=== PATIENT | male | born 1965 | race Caucasian/White ===

== ENCOUNTER 2017-12-13 12:03 | Emergency (ER) | payer SELFPAY ==
[2017-12-13 13:02] LABS: Bicarbonate 24 mEq/L (21-31); Glucose Level 119 mg/dL (65-120); Potassium 3.2 mEq/L (3.6-5.0); Sodium Level 141 mEq/L (135-145)
[2017-12-13 13:04] LABS: BUN Blood Urea Nitrogen 45 mg/dL (6-20)
[2017-12-13] MEDS ORDERED: NA CHLORIDE 0.9% 1,000 ML ONE (13:17)
[2017-12-13] MEDS ORDERED: POTASSIUM CL SA 10 MEQ TAB PO ONE (13:17)
[2017-12-13 13:37] LABS: Absolute Lymphocytes (CBC) 2.4 K/uL (0.7-4.9); Absolute Monocytes 1.1 K/uL (0.1-1.3); Absolute Neutrophil 8.9 K/uL (1.8-8.0); Basophils % 0.8 % (0-1.3); Eosinophils % 2.3 % (0-4.4); Hematocrit 45.6 % (39.6-49.0); Lymphocytes % 18.7 % (15.3-44.8); MCH 30.9 pg (27.0-35.0); MCV 91.8 fL (80-100); MPV 11.2 fL (7.6-11.3); Monocytes % 8.5 % (3.3-12.3); RBC Red Blood Cell Count 4.96 M/uL (4.33-5.43)
--- NOTE | 2017-12-13 13:37 | ER ---
Nurse's Notes [facility] Name: Eugene Cerna Age: 52 yrs Sex: Male : 1965 Arrival Date: 12/13/2017 Time: 12:06 Bed 3 Private MD: Diagnosis: Dehydration;Toxic effect of ingested mushrooms Presentation: 12/13 12:06 Presenting complaint: EMS states: TONED OUT BY BECAUSE PT WAS ACTING DIFFERENTLY FOR THE PAST FEW DAYS. PT REPORTS TO EMS HE HAS TAKEN MUSHROOMS AND CRATONE FOR THE PAST 3-4 DAYS, BUT HAS NOT TOLD HIS . PT IS USING MUSHROOMS FOR PAIN CONTROL BECAUSE HE CANNOT AFFORD SOMA AND NEURONTIN. Transition of care: patient was not received from another setting of care. Onset of symptoms was December 10, 2017. Risk Assessment: Do you want to hurt yourself or someone else? Patient reports no desire to harm self or others. Initial Sepsis Screen: Does the patient meet any 2 criteria? No. Patient's initial sepsis screen is negative. Does the patient have a suspected source of infection? No. Patient's initial sepsis screen is negative. Care prior to arrival: None. 12:06 Method Of Arrival: EMS: [facility] 12:06 Acuity: SHARI 5 Triage Assessment: 12:10 General: Appears in no apparent distress. comfortable, Behavior is calm, cooperative. Pain: Complains of pain in back. Historical: - Allergies: 12:10 No Known Allergies; - Home Meds: 12:10 WAS TAKING SOMA, NEURONTIN, TYLENOL #3, XANAX-BUT CANNOT AFFORD TO GO SEE A DOCTOR [Active]; - PMHx: 12:10 Chronic pain; Hypertension; Hypothyroidism; - PSHx: 12:10 Appendectomy; - Immunization history:: Adult Immunizations up to date. - Social history:: Smoking status: Patient uses tobacco products, Patient uses street drugs, psilocybin, XANAX. - Ebola Screening: : Patient negative for fever greater than or equal to 101.5 degrees Fahrenheit, and additional compatible Ebola Virus Disease symptoms Patient denies exposure to infectious person Patient denies travel to an Ebola-affected area in the 21 days before illness onset No symptoms or risks identified at this time. - Family history:: not pertinent. - Hospitalizations: : No recent hospitalization is reported. Screenin:48 Abuse screen: Denies threats or abuse. Denies injuries from another. Nutritional ch screening: No deficits noted. Tuberculosis screening: No symptoms or risk factors identified. Fall Risk None identified. Assessment: 13:48 Reassessment: Patient appears in no apparent distress at this time. Patient and/or ch family updated on plan of care and expected duration. Pain level reassessed. Patient is alert, oriented x 3, equal unlabored respirations, skin warm/dry/pink. Patient states feeling better. Patient states symptoms have improved. General: Appears in no apparent distress. comfortable, Behavior is calm, cooperative, appropriate for age. Pain: Denies pain. Neuro: Level of Consciousness is awake, alert, obeys commands, Oriented to person, place, time, situation. Respiratory: Airway is patent Respiratory effort is even, unlabored, Breath sounds are clear bilaterally. GI: Abdomen is round non-distended, Bowel sounds present X 4 quads. Abd is soft and non tender X 4 quads. Derm: Skin is pink, warm \T\ dry. 13:50 Reassessment: PT REFUSES TO GIVE URINE SAMPLE. PT STATES ITS AND INVASION AND HE DOES ch NOT WANT TO GIVE US URINE, OR HAVE US TEST HIS URINE. 14:22 Reassessment: Patient appears in no apparent distress at this time. Patient and/or ch family updated on plan of care and expected duration. Pain level reassessed. Patient is alert, oriented x 3, equal unlabored respirations, skin warm/dry/pink. PT STATES HIS IS ON HER WAY TO PICK HIM UP. PT ROLLED OUT TO LOBBY IN WHEELCHAIR PT IS GREATFUL. Vital Signs: 12:07 BP 120 / 82; Pulse 86; Resp 18; Temp 98.5; Pulse Ox 98% on R/A; Weight 104.33 kg; ph Height 6 ft. 0 in. (182.88 cm); 13:48 BP 132 / 89; Pulse 76; Resp 15; Temp 98.7; Pulse Ox 99% on R/A; Pain 0/10; ch 14:22 BP 128 / 87; Pulse 65; Resp 12; Temp 97.9; Pulse Ox 99% on R/A; Pain 6/10; ch 12:07 Body Mass Index 31.19 (104.33 kg, 182.88 cm) ph ED Course: 12:06 Patient arrived in ED. ss 12:06 Petty Woods, RN is Primary Nurse. ch 12:07 Ian Mckinley MD is Attending Physician. rn 12:09 Triage completed. ch 12:10 Arm band placed on left wrist. Patient placed in an exam room, on a stretcher, on bus driver/monitor, on pulse oximetry. 12:12 Arm band placed on. ph 12:34 EKG done, by measurement and sensing technician. reviewed by Ian Mckinley MD. at1 13:00 No apparent distress. ch 13:00 No provider procedures requiring assistance completed. Inserted saline lock: 18 gauge ch in left antecubital area, using aseptic technique. Blood collected. 13:48 Patient has correct armband on for positive identification. Bed in low position. Call ch light in reach. Side rails up X2. Adult w/ patient. personnel monitor on. Pulse ox on. NIBP on. 14:22 IV discontinued, intact, bleeding controlled, No redness/swelling at site. Pressure ch dressing applied. Administered Medications: 13:33 Drug: NS 0.9% 1000 ml Route: IV; Rate: 1000 ml; Site: left antecubital; ch 14:23 Follow up: IV Status: Completed infusion; IV Intake: 1000ml ch 13:33 Drug: Potassium Chloride 40 mEq Route: PO; 13:52 Follow up: Response: No adverse reaction; Marked relief of symptoms ch 14:23 Follow up: Response: No adverse reaction ch Intake: 14:23 IV: 1000ml; Total: 1000ml. Outcome: 13:36 Discharge ordered by MD. rn 14:22 Discharged to home via wheelchair, with family. 14:22 Condition: stable 14:22 Discharge instructions given to patient, Instructed on discharge instructions, follow up and referral plans. FOLLOW UP WITH PCP, STOP USING ILLEGAL DRUGS Demonstrated understanding of instructions, follow-up care. 14:24 Patient left the ED. Signatures: Petty Woods, RN RN Ian Mckinley MD MD rn Smirch, Shelby, RN RN Nathaly garcia, aerial planting and cultivation manager EKG Tat1 Martina Marino RN RN ph
--- NOTE | 2017-12-13 13:37 | EDPHYS ---
Physician Documentation [facility] Name: Eugene Cerna Age: 52 yrs Sex: Male : 1965 Arrival Date: 12/13/2017 Time: 12:06 Bed 3 Private MD: ED Physician Ian Mckinley HPI: 12/13 12:18 This 52 yrs old Male presents to ER via EMS with complaints of AMS. rn 12:18 The patient presents with confusion. Onset: The symptoms/episode began/occurred this rn morning. Possible causes: drug use. Associated signs and symptoms: Pertinent positives: confusion. Current symptoms: In the emergency department the patient's symptoms have improved. The patient has experienced similar episodes in the past. Family called 911 because patient wasn't acting right, patient reports was with friend last night, had 'shrooms last night and again this AM, last one around 0200, reports feeling better but can still tell has some in his system, no overdose, no trauma, no pain other than chronic back pain. No head injury. . Historical: - Allergies: 12:10 No Known Allergies; ch - Home Meds: 12:10 WAS TAKING SOMA, NEURONTIN, TYLENOL #3, XANAX-BUT CANNOT AFFORD TO GO SEE A DOCTOR ch [Active]; - PMHx: 12:10 Chronic pain; Hypertension; Hypothyroidism; ch - PSHx: 12:10 Appendectomy; ch - Immunization history:: Adult Immunizations up to date. - Social history:: Smoking status: Patient uses tobacco products, Patient uses street drugs, psilocybin, XANAX. - Ebola Screening: : Patient negative for fever greater than or equal to 101.5 degrees Fahrenheit, and additional compatible Ebola Virus Disease symptoms Patient denies exposure to infectious person Patient denies travel to an Ebola-affected area in the 21 days before illness onset No symptoms or risks identified at this time. - Family history:: not pertinent. - Hospitalizations: : No recent hospitalization is reported. ROS: 12:18 Constitutional: Negative for fever, chills, and weight loss, Eyes: Negative for injury, rn pain, redness, and discharge, Neck: Negative for injury, pain, and swelling, Cardiovascular: Negative for chest pain, palpitations, and edema, Respiratory: Negative for shortness of breath, cough, wheezing, and pleuritic chest pain, Abdomen/GI: Negative for abdominal pain, nausea, vomiting, diarrhea, and constipation, MS/Extremity: Negative for injury and deformity, Skin: Negative for injury, rash, and discoloration, Neuro: Negative for headache, weakness, numbness, tingling, and seizure. Exam: 12:18 Constitutional: This is a well developed, well nourished patient who is awake, alert, rn and in no acute distress. Head/Face: Normocephalic, atraumatic. Eyes: Pupils equal round and reactive to light, extra-ocular motions intact. Lids and lashes normal. Conjunctiva and sclera are non-icteric and not injected. Cornea within normal limits. Periorbital areas with no swelling, redness, or edema. Neck: Trachea midline, no thyromegaly or masses palpated, and no cervical lymphadenopathy. Supple, full range of motion without nuchal rigidity, or vertebral point tenderness. No Meningismus. Cardiovascular: Regular rate and rhythm with a normal S1 and S2. No gallops, murmurs, or rubs. Normal PMI, no JVD. No pulse deficits. Respiratory: Lungs have equal breath sounds bilaterally, clear to auscultation and percussion. No rales, rhonchi or wheezes noted. No increased work of breathing, no retractions or nasal flaring. Abdomen/GI: Soft, non-tender, with normal bowel sounds. No distension or tympany. No guarding or rebound. No evidence of tenderness throughout. Skin: Warm, dry with normal turgor. Normal color with no rashes, no lesions, and no evidence of cellulitis. MS/ Extremity: Pulses equal, no cyanosis. Neurovascular intact. Full, normal range of motion. Equal circumference. Neuro: Awake and alert, GCS 15, oriented to person, place, time, and situation. Cranial nerves II-XII grossly intact. Motor strength 5/5 in all extremities. Sensory grossly intact. Vital Signs: 12:07 BP 120 / 82; Pulse 86; Resp 18; Temp 98.5; Pulse Ox 98% on R/A; Weight 104.33 kg; ph Height 6 ft. 0 in. (182.88 cm); 13:48 BP 132 / 89; Pulse 76; Resp 15; Temp 98.7; Pulse Ox 99% on R/A; Pain 0/10; ch 14:22 BP 128 / 87; Pulse 65; Resp 12; Temp 97.9; Pulse Ox 99% on R/A; Pain 6/10; ch 12:07 Body Mass Index 31.19 (104.33 kg, 182.88 cm) ph MDM: 12:07 Patient medically screened. rn 13:35 Differential Diagnosis: electrolyte abnormality, volume depletion, drug use. Data rn reviewed: vital signs, nurses notes, lab test result(s), and as a result, I will discharge patient. Counseling: I had a detailed discussion with the patient and/or guardian regarding: the historical points, exam findings, and any diagnostic results supporting the discharge/admit diagnosis, lab results, the need for outpatient follow up, to return to the emergency department if symptoms worsen or persist or if there are any questions or concerns that arise at home. Refusal of service: The patient/guardian displays adequate decision making capability and despite a detailed discussion of alternatives, benefits, risks, and consequences refuses: urine studies. Special discussion: I discussed with the patient/guardian in detail that at this point there is no indication for admission to the hospital. It is understood, however, that if the symptoms persist or worsen the patient needs to return immediately for re-evaluation. Based on the history and exam findings, there is no indication for further emergent testing or inpatient evaluation. I discussed with the patient/guardian the need to see the primary care provider for further evaluation of the symptoms. 12/13 12:17 Order name: CBC with Diff rn 12/13 12:17 Order name: Basic Metabolic Panel; Complete Time: 13:35 rn 12/13 12:17 Order name: Acetaminophen; Complete Time: 13:35 rn 12/13 12:17 Order name: IV Start; Complete Time: 13:52 rn 12/13 12:17 Order name: EKG; Complete Time: 12:18 rn 12/13 12:17 Order name: EKG - Nurse/Tech; Complete Time: 13:52 rn Administered Medications: 13:33 Drug: NS 0.9% 1000 ml Route: IV; Rate: 1000 ml; Site: left antecubital; ch 14:23 Follow up: IV Status: Completed infusion; IV Intake: 1000ml ch 13:33 Drug: Potassium Chloride 40 mEq Route: PO; ch 13:52 Follow up: Response: No adverse reaction; Marked relief of symptoms ch 14:23 Follow up: Response: No adverse reaction Disposition: 12/13/17 13:36 Discharged to Home. Impression: Dehydration, Toxic effect of ingested mushrooms. - Condition is Stable. - Discharge Instructions: Dehydration, Adult. - Medication Reconciliation Form, Thank You Letter, Antibiotic Education, Prescription Opioid Use form. - Follow up: Private Physician; When: As needed; Reason: Recheck today's complaints, Re-evaluation by your physician. - Problem is new. - Symptoms have improved. Signatures: Dispatcher [employer] EDPetty Jonas RN RN Ian Mckinley MD MD rn training: (The following items were deleted from the chart) 14:24 13:36 12/13/2017 13:36 Discharged to Home. Impression: Dehydration; Toxic effect of ch ingested mushrooms. Condition is Stable. Forms are Medication Reconciliation Form, Thank You Letter, Antibiotic Education, Prescription Opioid Use. Follow up: Private Physician; When: As needed; Reason: Recheck today's complaints, Re-evaluation by your physician. Problem is new. Symptoms have improved. rn
--- NOTE | 2017-12-13 14:40 | EKG ---
Test Date: 2017-12-13 Test Time: 12:26:16 Software Engineer: HÉCTOR MEASUREMENT RESULTS: Intervals: Rate: 86 NE: 142 QRSD: 92 QT: 368 QTc: 440 [place]: P: 66 NE: 142 QRS: 28 T: 0 INTERPRETIVE STATEMENTS: Normal sinus rhythm ST & T wave abnormality, consider anterior ischemia Abnormal ECG No previous ECG available for comparison Electronically Signed On 12-13-17 14:39:51 CDT by Girish Cerda
[2017-12-13 14:48] VITALS: O2SAT 99
[2017-12-13 14:50] VITALS: BP 128/87; TEMP 97.9
== END 2017-12-13 14:24 | disposition home or self-care (01) ==
LOC: ER 12:03
DX: E86.0 Dehydration (principal); T62.0X1A Toxic effect of ingested mushrooms, accidental (unintentional), initial encounter; I10 Essential (primary) hypertension; E03.9 Hypothyroidism, unspecified; F17.200 Nicotine dependence, unspecified, uncomplicated
CPT/HCPCS: 36415; 80048; 80329; 85025; 93005; 96360; 99284; J7030